=== PATIENT | female | born 1975 | race Caucasian/White ===

== ENCOUNTER 2020-03-29 15:20 | Emergency (ER) | payer OTHER ==
--- NOTE | 2020-03-29 15:39 | ED Physician Documentation ---
PD HPI UPPER EXT INJURY - Stated complaint Stated Complaint: RT FINGER LAC - Chief complaint Chief Complaint: Wound - History obtained from History obtained from: Patient - History of Present Illness Location: Right (index), Finger Type of injury: Laceration Where injury occurred: Home Timing - onset: Today Timing - duration: Minutes Timing - details: Abrupt onset, Still present Improved by: Rest, Immobilization, Dressing Worsened by: Moving, Palpating Associated symptoms: No: Weakness, Numbness, Tingling, Swelling Contributing factors: No: Anticoagulated Similar symptoms before: Diagnosis (laceration) Recently seen: Not recently seen - Additonal information Additional information: Previously well 44-year-old female was out picking weeds and she started to use an electric hedge tremor battery-operated and when she went to try and turn the machine off she accidentally grabbed it and cut the tip of her index finger. She was able to control the bleeding with direct pressure and comes in now for suturing. Review of Systems Constitutional: denies: Fever Ears: denies: Ear pain Nose: denies: Congestion Respiratory: denies: Cough GI: denies: Vomiting Skin: reports: Laceration (s). denies: Rash Musculoskeletal: denies: Neck pain, Back pain, Extremity pain Neurologic: denies: Generalized weakness, Focal weakness, Numbness PD PAST MEDICAL HISTORY - Present Medications Home Medications: Ambulatory Orders Medication Instructions Recorded Confirmed lisinopriL [Lisinopril] 10 mg PO 10/14/15 10/14/15 - Allergies Allergies/Adverse Reactions: Allergies Allergy/AdvReac Type Severity Reaction Status Date / Time No Known Drug Allergies Allergy Verified 10/14/15 15:14 - Social History Does the pt smoke?: No Smoking Status: Never smoker PD ED PE NORMAL - Vitals Vital signs reviewed: Yes (hypertensive diastolic ) - General General: Alert and oriented X 3, No acute distress, Well developed/nourished - HEENT HEENT: Atraumatic, PERRL, EOMI - Respiratory Respiratory: No respiratory distress - Derm Derm: Normal color, Warm and dry, No rash - Extremities Extremities: No deformity, No edema, Other (there is a superficial laceration to the tip of the right middle finger and over the volar surface of the distal phlange. There is no involvement of deeper structures and no FB in the wounds. The remainder of the hand and fingers are dirty. ) - Neuro Neuro: Alert and oriented X 3, it risk advisor 2-12 intact, No motor deficit, No sensory deficit, Normal speech Eye Opening: Spontaneous Motor: Obeys Commands Verbal: Oriented GCS Score: 15 - Psych Psych: Normal mood, Normal affect Results - Vitals Vitals: Vital Signs - 24 hr 03/29/20 15:29 Temperature 36.7 C Heart Rate 85 Respiratory 20 Rate Blood Pressure 107/93 H O2 Saturation 99 Oxygen O2 Source Room air Procedures - Laceration (location) left middle Length in cm: 2 Wound type: Linear, Superficial, Clean Neurovascular status: Sensory intact, Motor intact, Vascular intact Tendon involvement: Tendon intact, Tendon Injury Wound Preparation: Hibiclens, Irrigated copiously NS, Wound explored, To the base Skin layer closure: Dermabond, Other (sureclose) Other: Patient tolerated well, No complications, Neurovascular intact, Dressing applied, Tetanus UTD Complexity: Simple PD MEDICAL DECISION MAKING - ED course Complexity details: reviewed results, re-evaluated patient, considered differential, d/w patient, d/w family ED course: 44-year-old female with a superficial laceration to the right middle finger from an electric hedge shear has repair done with sure close. She tolerates this well after cleaning. She is up-to-date on her tetanus Departure - Departure Disposition: 01 Home, Self Care Clinical Impression: Finger laceration Qualifiers: Encounter type: initial encounter Finger: middle finger Damage to nail status: without damage Foreign body presence: without foreign body Laterality: right Qualified Code(s): S61.212A - Laceration without foreign body of right middle finger without damage to nail, initial encounter Instructions: ED Laceration Sure Close Follow-Up: RAVI GREEN MD [Primary Care Provider] -
[2020-03-29 16:37] VITALS: BP 140/92
== END 2020-03-29 16:34 | disposition home or self-care (01) ==
LOC: ED 15:20
DX: S61.212A Laceration without foreign body of right middle finger without damage to nail, initial encounter (principal); W29.3XXA Contact with powered garden and outdoor hand tools and machinery, initial encounter; Y93.H2 Activity, gardening and landscaping; Y92.007 Garden or yard of unspecified non-institutional (private) residence as the place of occurrence of the external cause
CPT/HCPCS: 12001; 99281; 99282

== ENCOUNTER 2020-09-03 12:39 | Outpatient (CLI) | payer OTHER ==
--- NOTE | 2020-09-04 10:33 | Mammography Report ---
BILATERAL DIGITAL DIAGNOSTIC MAMMOGRAM 3D/2D: 09/03/2020 CLINICAL: Occasional left breast pain. Comparison is made to exam dated: 12/30/2017 mammogram - [facility]. The tissue of sawyer th breasts is heterogeneously dense. This may lower the sensitivity of mammography. No significant masses, calcifications, or other findings are seen in either breast. IMPRESSION: INCOMPLETE: NEEDS ADDITIONAL IMAGING EVALUATION There is no abnormality seen in the left breast to correspond with the area of clinical concern and p ain indicated by square marker at 12 o'clock in the anterior depth. An ultrasound is recommended for further evaluation and is scheduled to immediately follow this exami [facility], [place]. This exam was interpreted at Station ID: [id number]. NOTE: For mammograms, a report in lay terms will be sent to the patient. Approximately 15% of breast malignancies will not be visualized mammographically. In the management of a palpable breast mass, a negative mammogram must not discourage biopsy of a clinically suspicious lesion. Electronically Signed By: Lj Grady M.D. aty/:09/03/2020 14:23:15 ACR BI-RADS Category 0: Incomplete 3340F PARENCHYMAL PATTERN: (D) - The breast(s) demonstrate(s) heterogeneously dense fibroglandular [facility] [place]. BI-RADS CATEGORY: (0) - 0 Ultrasound [id number] Immediate follow-up LATERALITY: (L)
--- NOTE | 2020-09-04 10:33 | Ultrasound Report ---
LIMITED ULTRASOUND OF LEFT BREAST: 09/03/2020 CLINICAL: Focal left breast pain which currently has resolved. Comparison is made to exams dated: 09/03/2020 mammogram - [facility] and 12/30/2017 mammogram - [facility]. Real-time ultrasound of the left breast 12 o'clock region was performed. Garcia scale images of the r eal-time examination were reviewed. No significant abnormalities were seen sonographically in the left breast. IMPRESSION: NEGATIVE There is no sonographic evidence of malignancy. There is no abnormality seen in the left breast to correspond with the area of clinical concern and p ain at 12 o'clock in the anterior depth, however, clinical followup is recommended. A 1 year screening mammogram is recommended. Findings and recommendations were conveyed to the patient during today's evaluation. This exam was interpreted at Station ID: [id number]. Electronically Signed By: Lj Grady M.D. aty/:09/03/2020 14:25:24 Ultrasound BI-RADS: 1 Negative BI-RADS CATEGORY: (1) - 1 RECOMMENDATION: (ANNUAL) - Recommend routine annual screening mammography. [id number] 1 year screening LATERALITY: (B)
== END 2020-09-03 12:40 | disposition home or self-care (01) ==
LOC: DI 12:39
PROVIDERS: ATTEND Family Medicine
DX: N64.4 Mastodynia (principal)